=== PATIENT | female | born 1995 | race Caucasian/White ===

== ENCOUNTER 2025-03-31 08:50 | Outpatient (CLI) | payer OTHER, SELFPAY | END 2025-03-31 08:51 | disposition home or self-care (01) | LOC: NFLDREF 04-03 12:08 | PROVIDERS: PCP Nurse Practitioner Family; Visit Provider Nurse Practitioner Family | DX: R53.83 Other fatigue (principal); F41.9 Anxiety disorder, unspecified; F32.A Depression, unspecified; F98.8 Other specified behavioral and emotional disorders with onset usually occurring in childhood and adolescence; Z13.1 Encounter for screening for diabetes mellitus; Z13.0 Encounter for screening for diseases of the blood and blood-forming organs and certain disorders involving the immune mechanism; Z13.6 Encounter for screening for cardiovascular disorders | CPT/HCPCS: 80061; 82728; 82947; 84443 ==